=== PATIENT | male | born 1945 | race Caucasian/White ===

== ENCOUNTER → 2017-12-29 | Outpatient (CLI) | payer OTHER | LOC: M.CT 13:59 | DX: Z13.6 Encounter for screening for cardiovascular disorders (principal) ==

== ENCOUNTER 2018-12-18 08:56 | Emergency (ER) | payer MEDICARE ==
[~2018-12-18] VITALS: Ht 180.3 cm; Wt 97.5 kg
[2018-12-18] MEDS ORDERED: OMEPRAZOLE40 MG PO (09:12)
[2018-12-18] MEDS ORDERED: TIROSINT88 MCG PO (09:12)
[2018-12-18] MEDS ORDERED: GLUCOSAMINE CH1 EA10 PO (09:15)
[2018-12-18] MEDS ORDERED: PERCOCET 5-3251 EACH PO (09:24)
[2018-12-18] MEDS ORDERED: NAPROSYN500 MG PO (09:24)
[2018-12-18 09:43] VITALS: BP 125/78
== END 2018-12-18 09:44 | disposition home or self-care (01) ==
LOC: M.ERS 08:56
DX: M17.12 Unilateral primary osteoarthritis, left knee (principal); E03.9 Hypothyroidism, unspecified; Z90.49 Acquired absence of other specified parts of digestive tract; Z90.89 Acquired absence of other organs

== ENCOUNTER → 2019-12-21 | Outpatient (CLI) | payer MEDICARE ==
[~2019-12-21] MED LIST: GLUCOSAMINE CH1 EA10 PO; NAPROSYN500 MG PO; OMEPRAZOLE40 MG PO; PERCOCET 5-3251 EACH PO; TIROSINT88 MCG PO
== END ==
LOC: M.ULTRA 07:13
PROVIDERS: ATTEND Family Medicine
DX: N28.1 Cyst of kidney, acquired (principal)

== ENCOUNTER → 2019-12-24 | Outpatient (CLI) | payer MEDICARE | LOC: M.NUC 07:01 | PROVIDERS: ATTEND Family Medicine | DX: R10.84 Generalized abdominal pain (principal) ==

== ENCOUNTER → 2019-12-27 | Outpatient (CLI) | payer MEDICARE | LOC: M.LAB 14:23 | PROVIDERS: ATTEND Internal Medicine Gastroenterology | DX: Z01.812 Encounter for preprocedural laboratory examination (principal); Z20.828 Contact with and (suspected) exposure to other viral communicable diseases; R14.0 Abdominal distension (gaseous); R10.13 Epigastric pain ==

== ENCOUNTER 2020-08-28 18:54 | Emergency (ER) | payer MEDICARE ==
[~2020-08-28] VITALS: Ht 180.3 cm; Wt 102.1 kg
[2020-08-28] MEDS ORDERED: CIPROFLOXIN HC2.5 M1 OTIC (20:37)
[2020-08-28 20:52] VITALS: BP 151/88
== END 2020-08-28 20:53 | disposition home or self-care (01) ==
LOC: M.ERS 18:54
DX: S05.02XA Injury of conjunctiva and corneal abrasion without foreign body, left eye, initial encounter (principal); E03.9 Hypothyroidism, unspecified; G89.29 Other chronic pain; M25.561 Pain in right knee; M25.562 Pain in left knee; Z79.899 Other long term (current) drug therapy; X58.XXXA Exposure to other specified factors, initial encounter; Y93.89 Activity, other specified; Y92.89 Other specified places as the place of occurrence of the external cause; Y99.9 Unspecified external cause status